=== PATIENT | male | born 1985 | race Caucasian/White ===

== ENCOUNTER 2020-06-15 10:16 | Emergency (ER) | payer OTHER ==
[~2020-06-15] VITALS: Ht 170.2 cm; Wt 104.5 kg
[2020-06-15 10:58] VITALS: BP 157/97
== END 2020-06-15 12:30 | disposition home or self-care (01) ==
LOC: EMS 10:17
DX: Z11.59 Encounter for screening for other viral diseases (principal); Z20.828 Contact with and (suspected) exposure to other viral communicable diseases
CPT/HCPCS: 87426

== ENCOUNTER 2020-09-26 11:27 | Emergency (ER) | payer OTHER ==
[~2020-09-26] VITALS: Ht 172.7 cm; Wt 100.0 kg
[2020-09-26] MEDS ORDERED: MULT-1203 PO (11:29)
[2020-09-26 11:36] VITALS: BP 143/95
[2020-09-26 12:48] LABS: COVID AG,FIA SOURCE NASOPHARYNGEAL
== END 2020-09-26 12:30 | disposition home or self-care (01) ==
LOC: EMS 11:27
DX: U07.1 COVID-19 (principal); R09.81 Nasal congestion
CPT/HCPCS: 87426; 99283; U0003

== ENCOUNTER 2020-10-10 11:43 | Emergency (ER) | payer OTHER ==
[~2020-10-10] VITALS: Ht 172.7 cm; Wt 100.0 kg
[~2020-10-10 11:43] MED LIST: MULT-1203 PO
[2020-10-10 11:51] VITALS: BP 137/96
== END 2020-10-10 12:15 | disposition home or self-care (01) ==
LOC: EMS 11:43
DX: U07.1 COVID-19 (principal)
CPT/HCPCS: 99283; U0003

== ENCOUNTER 2020-10-13 15:33 | Emergency (ER) | payer OTHER ==
[~2020-10-13] VITALS: Ht 172.7 cm; Wt 100.0 kg
[2020-10-13 15:37] VITALS: BP 129/75
[2020-10-13 17:28] LABS: COVID AG,FIA SOURCE NASOPHARYNGEAL
== END 2020-10-13 17:25 | disposition home or self-care (01) ==
LOC: EMS 15:34
DX: Z20.828 Contact with and (suspected) exposure to other viral communicable diseases (principal)
CPT/HCPCS: 87426; 99283; U0003